=== PATIENT | female | born 1940 | race Caucasian/White ===

== ENCOUNTER → 2021-07-06 | Outpatient (CLI) | payer MEDICARE ==
--- NOTE | 2021-07-07 14:38 | MM ---
Reason for exam: screening (asymptomatic). Last mammogram was performed 1 year and 6 months ago. History: Patient is postmenopausal. Excisional biopsy of the right breast. Took hormonal contraceptives for 10 years. Physical Findings: A clinical breast exam by your physician is recommended on an annual basis and results should be correlated with mammographic findings. MG 3D Screening Mammo W/Cad Bilateral CC and MLO view(s) were taken. Prior study comparison: December 23, 2019, mammogram, performed at [facility]. August 22, 2018, mammogram, performed at [facility]. August 06, 2017, mammogram, performed at [facility]. March 20, 2016, mammogram, performed at [facility]. The breast tissue is extremely dense which could obscure a lesion on mammography. Focal asymmetry right upper MLO view. No significant changes when compared with prior studies. ASSESSMENT: Benign, BI-RAD 2 RECOMMENDATION: Routine screening mammogram of both breasts in 1 year.
== END | disposition home or self-care (01) ==
LOC: RADMAMWWP 09:06
PROVIDERS: ATTEND Internal Medicine Geriatric Medicine
DX: Z12.31 Encounter for screening mammogram for malignant neoplasm of breast (principal); Z78.0 Asymptomatic menopausal state
CPT/HCPCS: 77063; 77067

== ENCOUNTER → 2021-12-06 | Outpatient (CLI) | payer MEDICARE ==
--- NOTE | 2021-12-06 19:24 | BD ---
EXAMINATION TYPE: Axial Bone Density DATE OF EXAM: 12/06/2021 COMPARISON: 10/21/2015 CLINICAL HISTORY: 81 years year old Female. ICD-10 CODE: M81.0 AGE-RELATED OSTEOPOROSIS W/O CURRENT PATHOLO Height: 64 IN Weight: 120 LBS FRAX RISK QUESTIONS: History of Fracture in Adulthood: RT ANKLE FX AGE 51; RT HIP AGE 76 Secondary Osteoporosis: 3. Menopause before 45: PARTIAL HYST AGE 51 RISK FACTORS HISTORY OF: Hip Fracture (Right): YES AGE 76 Surgery to Hip(right): YES AGE 76 Active: YES Postmenopausal woman: PARTIAL HYST AGE 51 Take estrogen and/or progesterone medications: NOT NOW How lon YEARS Lost more than 2 inches in height since high school: 3" YES MEDICATIONS: Additional Medications: CALCIUM, VIT D, BLOOD PRESSURE MEDS, CHOLESTEROL MEDS, FISH OIL, EXAM MEASUREMENTS: Bone mineral densitometry was performed using the dooub System. Bone mineral density as measured about the Lumbar spine is: ----- L1-L4(G/cm2): 0.948 T Score Values are as follows: ----- L1: -2.4 ----- L2: -2.6 ----- L3: -1.8 ----- L4: -1.3 ----- L1-L4: -1.9 Bone mineral density has: Increased 5.4% since study of: 10/21/2015 Bone mineral density about the L hip (g/cm2): 0.668 T Score values are as follows: -----L Neck: -2.7 -----L Total: -3.3 Bone mineral density has: Decreased -5.6% since study of: 10/21/2015 FRAX%s: The graph provided illustrates a 25.7 chance for a major osteoporotic fx and a 9.4 chance for the hips probability for fx in 10 years time. IMPRESSION: Osteoporosis (T Score less than -2.5). There is increased fracture risk and therapy is usually indicated based on age. Re-Screen 1-2 years. NOTE: T-SCORE=SD OF THE YOUNG ADULT MEAN.
== END | disposition home or self-care (01) ==
LOC: RADBDWWP 13:17
PROVIDERS: ATTEND Internal Medicine Geriatric Medicine
DX: M81.0 Age-related osteoporosis without current pathological fracture (principal)
CPT/HCPCS: 77080

== ENCOUNTER → 2022-08-03 | Outpatient (CLI) | payer MEDICARE ==
--- NOTE | 2022-08-06 19:24 | MM ---
Reason for Exam: Screening (asymptomatic). Last screening mammogram was performed 12 month(s) ago. Patient History: Menarche at age 17. First Full-Term at age 25. Hysterectomy at age 56. Postmenopausal. Patient used Hormonal Contraceptives for 10 years. Excisional Biopsy on the Right side. Risk Values: Cnidi 5 year model risk: 1.6%. NCI Lifetime model risk: 2.2%. Prior Study Comparison: 08/22/2018 Screening Mammogram, [facility]. 12/23/2019 Screening Mammogram, [facility]. 07/06/2021 Bilateral Screening Mammogram, [facility]. Tissue Density: The breast tissue is extremely dense which could obscure a lesion on mammography. Findings: Analyzed By CAD. There is no suspicious group of microcalcifications or new suspicious mass in either breast. Overall Assessment: Benign, BI-RAD 2 Management: Screening Mammogram of both breasts in 1 year. 1. Given the patient's breast density, consideration can be given to supplementary screening with breast ultrasound. 2. Patient should continue monthly self breast exams. A clinical breast exam by your physician is recommended on an annual basis. 3. This exam should not preclude additional follow-up of suspicious palpable abnormalities. Electronically signed and approved by: Pradip Cox M.D. Radiologist
== END | disposition home or self-care (01) ==
LOC: RADMAMWWP 13:33
PROVIDERS: ATTEND Internal Medicine Geriatric Medicine
DX: Z12.31 Encounter for screening mammogram for malignant neoplasm of breast (principal); Z78.0 Asymptomatic menopausal state
CPT/HCPCS: 77063; 77067

== ENCOUNTER → 2023-09-13 | Outpatient (CLI) | payer MEDICARE ==
--- NOTE | 2023-09-15 20:41 | XR ---
EXAMINATION TYPE: XR lumbar spine 3V DATE OF EXAM: 09/13/2023 Comparison: None Clinical History: 83-year-old female M54.9 DORSALGIA, UNSPECIFIED Findings: Slight dextroconvex curvature of the lumbar spine. 5 lumbar type vertebral bodies. Osteopenia. Hypert rophic facet arthropathy throughout, greatest in the mid and lower lumbar spine. There is degenerativ e grade 1 retrolisthesis L2-L3 and grade 1 anterolisthesis L4-L5. Remaining alignment is maintained. Vertebral body heights are preserved. Impression: Slight dextroconvex curvature. Hypertrophic facet arthropathy throughout with a degenerative grade 1 spondylolisthesis at L2-L3 and L4-L5. No vertebral compression collapse.
--- NOTE | 2023-09-16 10:37 | MM ---
Reason for Exam: Screening (asymptomatic). Last mammogram was performed 1 year(s) and 2 month(s) ago. Patient History: Menarche at age 17. First Full-Term at age 25. Hysterectomy at age 56. Postmenopausal. Patient used Hormonal Contraceptives for 10 years. Excisional Biopsy on the Right side. Risk Values: Cindi 5 year model risk: 1.5%. NCI Lifetime model risk: 2.0%. Prior Study Comparison: 12/23/2019 Screening Mammogram, [facility]. 07/06/2021 Bilateral Screening Mammogram, [facility]. 08/03/2022 Bilateral MG 3D screening mammo w/cad, [facility]. Tissue Density: The breasts are heterogeneously dense, which may obscure small masses. Findings: Analyzed By CAD. Right breast: There is no suspicious group of microcalcifications or new suspicious mass. Benign-appearing calcifications right breast. Left breast: There is no suspicious group of microcalcifications or new suspicious mass. Benign-appearing calcifications left breast. Overall Assessment: Benign, BI-RAD 2 Management: Screening Mammogram of both breasts in [address] [facility] will attempt to contact patient to return for supplemental views and ultrasound if indicated. Patient should continue monthly self-breast exams. A clinical breast exam by your physician is recommended on an annual basis. This exam should not preclude additional follow-up of suspicious palpable abnormalities. Note on Cindi scores and lifetime risk: 1. A Cindi score greater than 3% is considered moderate risk. If this is the case, consider specialist referral to assess eligibility for a risk reducing agent. 2. If overall lifetime risk for the development of breast cancer is 20% or higher, the patient may qualify for future screening with alternating mammogram and breast MRI. Electronically signed and approved by: Oneil Andrade DO
== END | disposition home or self-care (01) ==
LOC: RADMAMWWP 11:28
PROVIDERS: ATTEND Internal Medicine Geriatric Medicine
DX: Z12.31 Encounter for screening mammogram for malignant neoplasm of breast (principal); M43.16 Spondylolisthesis, lumbar region; M51.36 Other intervertebral disc degeneration, lumbar region; Z78.0 Asymptomatic menopausal state
CPT/HCPCS: 72100; 77063; 77067

== ENCOUNTER → 2023-11-28 | Outpatient (CLI) | payer MEDICARE ==
--- NOTE | 2023-11-28 17:21 | CA ---
Transthoracic Echo Report Name: Daphne Chisholm Age: 83 Gender: F : 1940 Exam Date: 11/28/2023 15:31 Exam Location: [place] [facility] Ht (in): 66 Wt (lb): 110 Ordering Physician: Fran Mercado MD Attending/Referring Phys: Marie Valencia [facility] Recreation Assistant Marge Paige RDCS Procedure CPT: Indications: R01.1 cardiac murmur unspec. Cardiac Hx: Technical Quality: Good Contrast 1: Total Dose (mL): Contrast 2: Total Dose (mL): MEASUREMENTS (Male / Female) Normal Values 2D ECHO LV Diastolic Diameter PLAX 4.0 cm 4.2 - 5.9 / 3.9 - 5.3 cm LV Systolic Diameter PLAX 2.4 cm IVS Diastolic Thickness 0.7 cm 0.6 - 1.0 / 0.6 - 0.9 cm LVPW Diastolic Thickness 0.8 cm 0.6 - 1.0 / 0.6 - 0.9 cm LV Relative Wall Thickness 0.4 RV Internal Dim ED PLAX 2.2 cm LA Systolic Diameter LX 3.3 cm 3.0 - 4.0 / 2.7 - 3.8 cm LV Diastolic Volume MOD BP 67.2 cm??? 67 - 155 / 56 - 104 cm??? LV Systolic Volume MOD BP 18.3 cm??? 22 - 58 / 19 - 49 cm??? LV Ejection Fraction MOD BP 72.7 % >= 55 % LV Diastolic Volume MOD 4C 74.6 cm??? LV Systolic Volume MOD 4C 17.5 cm??? LV Ejection Fraction MOD 4C 76.6 % LV Diastolic Length 4C 7.4 cm LV Systolic Length 4C 6.0 cm LV Diastolic Volume MOD 2C 60.7 cm??? LV Systolic Volume MOD 2C 18.2 cm??? LV Ejection Fraction MOD 2C 70.0 % LV Diastolic Length 2C 7.5 cm LV Systolic Length 2C 5.6 cm M-MODE Aortic Root Diameter MM 2.6 cm LA Systolic Diameter MM 3.5 cm LA Ao Ratio MM 1.3 AV Cusp Separation MM 1.5 cm DOPPLER Mitral E Point Velocity 81.0 cm/s Mitral A Point Velocity 83.1 cm/s Mitral E to A Ratio 1.0 MV Deceleration Time 256.3 ms MV E' Velocity 6.5 cm/s Mitral E to MV E' Ratio 12.4 TR Peak Velocity 254.7 cm/s TR Peak Gradient 25.9 mmHg Right Ventricular Systolic Press 31.5 mmHg FINDINGS Left Ventricle Left ventricular ejection fraction is estimated at 55-60%. Left ventricular cavity size normal. No obvious regional wall motion abnormalities. Left ventricular wall thickness normal. Right Ventricle Normal right ventricular size and function. Right ventricular systolic pressure within normal limits. Right Atrium Normal right atrial size. Left Atrium Normal left atrial size. Mitral Valve Structurally normal mitral valve. [id number]-[id number] mitral regurgitation. No mitral stenosis. Aortic Valve Trileaflet aortic valve. No aortic valve stenosis or regurgitation. Focal thickening of the aortic valve cusps. Tricuspid Valve Structurally normal tricuspid valve. [id number] tricuspid regurgitation. No tricuspid stenosis. Pulmonic Valve Structurally normal pulmonic valve. Trace pulmonic regurgitation. Pericardium No pericardial or pleural effusion. Aorta Normal size aortic root and proximal ascending aorta. CONCLUSIONS Normal LV function Mild to moderate mitral regurgitation Mild to moderate tricuspid regurgitation Previewed by: Dr. Yvan Arnold MD (Electronically Signed) Final Date: 28 November 2023 17:20
== END | disposition home or self-care (01) ==
LOC: RADECHMAIN 15:16
PROVIDERS: ATTEND Internal Medicine Geriatric Medicine
DX: I08.1 Rheumatic disorders of both mitral and tricuspid valves (principal); R01.1 Cardiac murmur, unspecified
CPT/HCPCS: 93306

== ENCOUNTER → 2023-12-04 | Outpatient (CLI) | payer MEDICARE ==
--- NOTE | 2023-12-04 08:49 | US ---
EXAMINATION TYPE: US renal doppler DATE OF EXAM: 12/04/2023 COMPARISON: NONE CLINICAL INDICATION: Female, 83 years old with history of I10 Hypertension; HTN MEASUREMENTS: RENAL SIZE: Right Kidney: 9.4 x 3.9 x 3.6 cm Left Kidney: 11.1 x 4.4 x 3.6 cm Right Kidney: No hydronephrosis or lesions seen Left Kidney: No hydronephrosis or lesions seen Abd Aorta: No AAA visualized RESISTANCE INDEX Right: .79 Left: .77 RA/AO RATIO (< 3.5 ) Right: 1.3 Left: 1.3 RENAL ARTERY VELOCITY ( < 180 cm/s) Right: 114 Left: 112 Collar Stay Fuser Tender Notes: IMPRESSION: 1. No evidence for renal artery stenosis. 2. No evidence for obstructive uropathy.
== END | disposition home or self-care (01) ==
LOC: RADUSWWP 07:12
PROVIDERS: ATTEND Internal Medicine Interventional Cardiology
DX: I10 Essential (primary) hypertension (principal)
CPT/HCPCS: 76775

== ENCOUNTER → 2024-06-01 | Outpatient (CLI) | payer MEDICARE ==
--- NOTE | 2024-06-01 11:13 | XR ---
EXAMINATION TYPE: XR Hip Bilateral Complete DATE OF EXAM: 06/01/2024 COMPARISON: NONE CLINICAL INDICATION: Female, 84 years old with history of M25.551 R hip pain; TECHNIQUE: 2 views each side FINDINGS: Right: There are changes of right hip hemiarthroplasty. Femoral stem component appears well seated. T here is some axial joint space narrowing at the prosthetic right hip. There is a focus of heterotopic ossification along the superior aspect of the hip measuring 5.6 x 2.1 cm, nearly bridging. No acute fracture, subluxation, or dislocation. Left: Osteopenia. Mild degenerative change at the left hip weight marginal spurring. No acute fractur e, subluxation, dislocation. IMPRESSION: 1. Right: Status post right hip hemiarthroplasty. The femoral component appears well seated. There ma y be some [id number] degenerative change of the [place] acetabular articular cartilage. In addit ion, there is a focus of nearly bridging heterotopic ossification measuring 5.6 x 2.1 cm along the chandler perior aspect of the hip. 2. Left: Mild left hip OA. Osteopenia. No acute osseous abnormality seen. [facility], , 06/01/2024 11:10 AM
== END | disposition home or self-care (01) ==
LOC: RADXRMAIN 10:15
PROVIDERS: ATTEND Internal Medicine Geriatric Medicine
DX: M16.12 Unilateral primary osteoarthritis, left hip (principal); Z96.641 Presence of right artificial hip joint; M85.89 Other specified disorders of bone density and structure, multiple sites
CPT/HCPCS: 73521

== ENCOUNTER 2024-09-11 12:32 | Observation (INO) | payer MEDICARE ==
--- NOTE | 2024-09-11 14:32 | ED ---
Back Pain HPI - General Chief Complaint: Back Pain/Injury Stated Complaint: Back pain Time Seen by Provider: 09/11/24 14:18 Source: patient, RN notes reviewed Mode of arrival: ambulatory Limitations: no limitations - History of Present Illness Initial Comments: This is an 84-year-old female who presents to the emergency department for low back pain. Patient has a history of ongoing back problems and for the last couple of days her right sided sciatica has been flaring up on her. Believes that this was triggered by bending over to pick something up that was heavy. She has tried taking oral hydrocodone and tramadol, but cannot tolerate it as it upsets her stomach. It is also not effective for her pain. She had an MRI back in May and they had advised epidural injections or surgery. She was referred for an epidural injection, but states that it is not scheduled for another several days and she cannot wait due to the pain. Her states that she is up all night crying and not sleeping. Pain goes from the right lower back and radiates down her right leg. Denies any loss of bowel/bladder control or saddle anesthesia. MD Complaint: back pain - Related Data Home Medications Medication Instructions Recorded Confirmed Aspirin EC [Ecotrin Low Dose] 81 mg PO DAILY 08/31/22 09/11/24 Ezetimibe [Zetia] 10 mg PO DAILY 08/31/22 09/11/24 L.acidoph,Paracasei, B.lactis 1 cap PO W/SUPPER 08/31/22 09/11/24 [Probiotic] Multivit with Calcium,Iron,Min 1 tab PO DAILY 08/31/22 09/11/24 [Women's Multivitamin] Rosuvastatin [Crestor] 10 mg PO HS 08/31/22 09/11/24 lisinopriL 40 mg PO DAILY 08/31/22 09/11/24 Cetirizine HCl [Zyrtec] 10 mg PO W/SUPPER 09/11/24 09/11/24 Fluticasone Nasal [place] [Flonase 1 spray EA NOSTRIL DAILY 09/11/24 09/11/24 Nasal [place]] LORazepam [Ativan] 1 mg PO TID PRN 09/11/24 09/11/24 Spironolactone [Aldactone] 25 mg PO DAILY 09/11/24 09/11/24 atenoloL [Tenormin] 50 mg PO BID 09/11/24 09/11/24 hydrALAZINE HCL [Apresoline] 100 mg PO TID 09/11/24 09/11/24 Previous Rx's Medication Instructions Recorded Fluticasone Propion/Salmeterol 2 puff INHALATION RT-BID #1 each 09/03/22 [Advair Hfa 115-21 Mcg Inhaler] Allergies Allergy/AdvReac Type Severity Reaction Status Date / Time morphine Allergy Unknown Verified 09/11/24 15:38 Sulfa (Sulfonamide Allergy Unknown Verified 09/11/24 15:38 Antibiotics) Review of Systems ROS Statement: Those systems with pertinent positive or pertinent negative responses have been documented in the HPI. ROS Other: All systems not noted in ROS Statement are negative. Past Medical History Past Medical History: Hypertension Additional Past Medical History / Comment(s): uti, chronic back pain History of Any Multi-Drug Resistant Organisms: None Reported Past Surgical History: Hernia Repair, Hysterectomy, Joint Replacement, Orthopedic Surgery Past Psychological History: No Psychological Hx Reported Smoking Status: Never smoker Past Alcohol Use History: None Reported Past Drug Use History: None Reported General Exam Limitations: no limitations General appearance: alert, in distress Head exam: Present: atraumatic, normocephalic, normal inspection Respiratory exam: Present: normal lung sounds bilaterally. Absent: respiratory distress, wheezes, rales, rhonchi, stridor Cardiovascular Exam: Present: regular rate, normal rhythm Neurological exam: Present: alert, oriented X3, CN II-XII intact Psychiatric exam: Present: normal affect, normal mood Skin exam: Present: warm, dry, intact, normal color. Absent: rash Course Vital Signs 09/11/24 09/11/24 09/11/24 12:54 16:56 18:43 Temperature 98 F Pulse Rate 68 80 Respiratory 16 16 Rate Blood Pressure 143/71 127/61 O2 Sat by Pulse 97 93 L Oximetry Medical Decision Making - Medical Decision Making This is an 84-year-old female who presents to the emergency department for back pain. Was pt. sent in by a medical professional or institution? @ -No Did you speak to anyone other than the patient for history? @ -Her provided information about her being unable to sleep due to her pain Did you review nursing and triage notes? @ -Yes, and I agree, it is accurate with regards to the patient's symptoms. Were old charts reviewed? @ -No Differential Diagnosis? @ -Differential Back Pain: Strain, zoster, cauda equina syndrome, epidural abscess, vertebral osteomyelitis, discitis, fracture, subluxation, disc herniation, DJD, spinal stenosis, dissection, AAA, pancreatitis, peptic ulcer disease, pyelonephritis, kidney stone, this is not meant to be an all-inclusive list. EKG interpreted by me (3pts min.)? @ -Not obtained X-rays interpreted by me (1pt min.)? @ -Not obtained CT interpreted by me (1pt min.)? @ -CT scan of the lumbar spine obtained. My interpretation identifies no acute fractures. U/S interpreted by me (1pt. min.)? @ -Not obtained What testing was considered but not performed? (CT, X-rays, U/S, labs)? Why? @ -None What meds were considered but not given? Why? @ -None Did you discuss the management of the patient with other professionals? @ -Yes, Dr. Sommers, who accepts the patient for admission Did you reconcile home meds? @ -Yes Was smoking cessation discussed for >3mins.? @ -No Was critical care preformed (if so, how long)? @ -No Were there social determinants of health that impacted care today? How? (Homelessness, low income, unemployed, alcoholism, drug addiction, transportation, low edu. Level, literacy, decrease access to med. care, half-way, rehab)? @ -No Was there de-escalation of care discussed even if they declined? (Discuss DNR or withdrawal of care, Hospice)? @ -No What co-morbidities impacted this encounter? (DM, HTN, Smoking, COPD, CAD, Cancer, CVA, Hep., AIDS, mental health diagnosis, sleep apnea, morbid obesity)? @ -HTN, chronic back pain Was patient admitted / discharged? @ -Admitted. Lab work unremarkable. Urinalysis negative for signs of infection. CT scan of the lumbar spine demonstrates multiple broad-based disc bulges with foraminal stenosis. Patient was given multiple pain medications with little to no relief. She has already tried [place] and tramadol at home, which have also not been effective and upset her stomach. Patient very tearful throughout the emergency department visit due to her pain and situation. States that she is already established with Dr. Wei, orthopedics. Patient admitted to medicine for intractable back pain related to broad-based disc bulges and foraminal stenosis. Consult placed for Dr. Wei. Case discussed with ED atte andres Londono. Undiagnosed new problem with uncertain prognosis? @ -None Drug Therapy requiring intensive monitoring for toxicity (Heparin, Nitro, Insulin, Cardizem)? @ -None Were any procedures done? @ -None Diagnosis/symptom? @ -Intractable back pain, broad-based disc bulges, foraminal stenosis Acute, or Chronic, or Acute on Chronic? @ -Acute Uncomplicated (without systemic symptoms) or Complicated (systemic symptoms)? @ -Complicated Side effects of treatment? @ -None Exacerbation, Progression, or Severe Exacerbation] @ -Not applicable Poses a threat to life or bodily function? @ -Yes, patient unable to function due to her pain - Lab Data Result diagrams: 09/11/24 14:36 09/11/24 14:36 Lab Results 09/11/24 09/11/24 09/11/24 Range/Units 14:36 14:36 14:36 WBC 9.83 (4.50-10.00) 10*3/uL RBC 4.44 (4.10-5.20) 10*6/uL Hgb 13.5 (12.0-15.0) g/dL Hct 41.6 (37.2-46.3) % MCV 93.7 (80.0-97.0) fL MCH 30.4 (27.0-32.0) pg MCHC 32.5 (32.0-37.0) g/dL Plt Count 230 (140-440) 10*3/uL MPV 10.1 (9.5-12.2) fL Immature Gran % (Auto) 0.4 % Neutrophils % 66.9 % Lymphocytes % 22.5 % Monocytes % 9.2 % Eosinophils % 0.7 % Basophils % 0.3 % Immature Gran # 0.04 (0.00-0.04) 10*3/uL Neutrophils # 6.58 (1.80-7.70) 10*3/uL Lymphocytes # 2.21 (0.90-5.00) 10*3/uL Monocytes # 0.90 (0.20-1.00) 10*3/uL Eosinophils # 0.07 (0.04-0.35) 10*3/uL Basophils # 0.03 (0.00-0.10) 10*3/uL PT 10.1 (10.0-12.5) sec INR 0.9 (<1.2) APTT 20.5 L (22.0-30.0) sec Sodium 137 (137-145) mmol/L Potassium 5.0 (3.5-5.1) mmol/L Chloride 102 (98-107) mmol/L Carbon Dioxide 26 (22-30) mmol/L Anion Gap 9 mmol/L BUN 38 H (7-17) mg/dL Creatinine 0.88 (0.52-1.04) mg/dL Est GFR (CKD-EPI)AfAm 71 (>60 ml/min/1.73 sqM) Est GFR (CKD-EPI)NonAf 61 (>60 ml/min/1.73 sqM) Glucose 109 H (74-99) mg/dL Calcium 10.7 H (8.4-10.2) mg/dL Magnesium 1.9 (1.6-2.3) mg/dL Total Bilirubin 0.6 (0.2-1.3) mg/dL AST 31 (14-36) U/L ALT 23 (4-34) U/L Alkaline Phosphatase 45 (38-126) U/L Total Protein 7.1 (6.3-8.2) g/dL Albumin 4.5 (3.5-5.0) g/dL - Radiology Data Radiology results: report reviewed, image reviewed Disposition Clinical Impression: Intractable low back pain, Bulging discs, Foraminal stenosis of lumbar region, Lumbar radiculopathy, right Disposition: ADMITTED IP TO THIS HOSP
[2024-09-11 14:39] LABS: Basophils # (A) 0.03 10*3/uL (0.00-0.10); Basophils % (A) 0.3 %; Eosinophils # (A) 0.07 10*3/uL (0.04-0.35); Eosinophils % (A) 0.7 %; HCT 41.6 % (37.2-46.3); HGB 13.5 g/dL (12.0-15.0); Lymphocytes # (A) 2.21 10*3/uL (0.90-5.00); Lymphocytes % (A) 22.5 %; MCH 30.4 pg (27.0-32.0); MCHC 32.5 g/dL (32.0-37.0); MCV 93.7 fL (80.0-97.0); Mean Platelet Volume 10.1 fL (9.5-12.2); Monocytes % (A) 9.2 %; Neutrophils # (A) 6.58 10*3/uL (1.80-7.70); Neutrophils % (A) 66.9 %; Platelet Count 230 10*3/uL (140-440); RBC 4.44 10*6/uL (4.10-5.20); RDW 11.9 % (11.5-14.5); WBC 9.83 10*3/uL (4.50-10.00)
[2024-09-11] MEDS: KETOROLAC 15 MG/ML 1 ML VIAL IVP STA (14:52)
[2024-09-11] MEDS: SODIUM CHLORIDE 0.9% 500 ML 500 ML IV ONE (14:52)
[2024-09-11] MEDS: ONDANSETRON 4 MG/2 ML VIAL IVP STA (14:52)
[2024-09-11] MEDS: HYDROmorphone 0.5 MG/0.5 ML SYRINGE IVP STA (14:55)
[2024-09-11] MEDS: DEXAMETHASONE SOD PHOSPHATE 10 MG/ML 1 ML VIAL IVP STA (14:55)
[2024-09-11 14:57] LABS: INR 0.9 (<1.2); Prothrombin Time 10.1 sec (10.0-12.5)
[2024-09-11 15:02] LABS: Partial Thromboplastin Time 20.5 sec (22.0-30.0)
[2024-09-11 15:06] LABS: ALT 23 U/L (4-34); AST 31 U/L (14-36); African American GFR (CKD) 71 (>60 ml/min/1.73 sqM); Albumin 4.5 g/dL (3.5-5.0); Alkaline Phosphatase 45 U/L (38-126); Anion Gap 9 mmol/L; Blood Urea Nitrogen 38 mg/dL (7-17); Calcium 10.7 mg/dL (8.4-10.2); Carbon Dioxide 26 mmol/L (22-30); Chloride 102 mmol/L (98-107); Glucose 109 mg/dL (74-99); Magnesium 1.9 mg/dL (1.6-2.3); Non-African American GFR(CKD) 61 (>60 ml/min/1.73 sqM); Sodium 137 mmol/L (137-145); Total Bilirubin 0.6 mg/dL (0.2-1.3); Total Protein 7.1 g/dL (6.3-8.2)
--- NOTE | 2024-09-11 15:28 | CT ---
EXAMINATION TYPE: CT lumbar spine wo con DATE OF EXAM: 09/11/2024 3:19 PM COMPARISON: None. CLINICAL INDICATION: Female, 84 years old with history of Low back pain, Lower back pain, radiates to wards feet. States that she picked up something too heavy, pain TECHNIQUE: CT of the lumbar spine is performed on a spiral scan at 3 mm thick sections. Reconstructed images are performed in the coronal and sagittal planes. Contrast used: mL of , (none if empty) Oral contrast used: (none if empty) CT DLP: 430 mGycm, Automated exposure control for dose reduction was used. FINDINGS: T12-L1: No focal disc herniation or significant disc bulge is evident. No spinal canal stenosis or neural foraminal stenosis is present. L1-L2: Mild disc bulge and anterior thecal sac contact. Facet hypertrophy has posterior lateral theca l sac compression. AP spinal canal stenosis is not present. Neural foramen are patent L2-L3: Broad-based disc bulge has mild anterior thecal sac compression. Facet hypertrophy and ligamen vu flavum laxity of posterior lateral thecal sac impression. Moderate left and mild right foraminal narrowing is present. L3-L4: Disc space narrowing is present. Residual disc bulges anterior thecal sac flattening. Facet hy pertrophy and ligamentum flavum laxity is present. No AP spinal canal stenosis is present. There is m oderate to severe left and moderate right foraminal stenosis. L4-L5: Minimal grade 1 spondylolisthesis is present. Disc uncovering is moderate anterior thecal sac compression. Facet hypertrophy and ligamentum flavum laxity is present. Spinal canal stenosis present . Moderate bilateral foraminal narrowing is present greater on the left. L5-S1: No focal disc herniation or significant disc bulge is evident. No spinal canal stenosis or n eural foraminal stenosis is present. IMPRESSION: 1. Broad-based disc bulge and facet hypertrophy and ligamentum flavum laxity is contributing to spina l canal narrowing at the L4-5 level. Bilateral moderate foraminal stenosis is present. 2. Moderate foraminal narrowing L2-3 and moderate to severe foraminal narrowing L3-4 discussed above. No severe foraminal stenosis appears to be the right L3-4 level. Correlate for radicular symptoms. 3. Minimal grade 1 spondylolisthesis of L4 anterior to L5. [facility], , 09/11/2024 3:26 PM
[2024-09-11] MEDS ORDERED: NALOXONE 0.4 MG/ML 1 ML VIAL IV PRN (15:54)
[2024-09-11] MEDS ORDERED: HYDROmorphone 1 MG/ML 1 ML SYRINGE IVP PRN (15:54)
[2024-09-11] MEDS ORDERED: ONDANSETRON 4 MG/2 ML VIAL IVP PRN (15:54)
[2024-09-11] MEDS ORDERED: ACETAMINOPHEN TAB 325 MG TAB PO PRN (15:54)
[2024-09-11] MEDS: LIDOCAINE 4% PATCH TOPICAL ONE (17:00)
[2024-09-11] MEDS: hydrALAZINE HCL 50 MG TAB PO SCH (17:00)
[2024-09-11] MEDS: LACTOBACILLUS ACIDOPHILUS/PECT 1 EACH CAPSULE PO SCH (18:41)
[2024-09-11] MEDS: LORATADINE 10 MG TAB PO SCH (18:44)
[2024-09-11 19:11] LABS: Appearance,Urine Clear (Clear); Bacteria,Urine Few /hpf; Bilirubin,Urine Negative (Negative); Blood,Urine Negative (Negative); Color,Urine Yellow; Glucose,Urine (UA) Negative (Negative); Hyaline Casts,Urine 8 /lpf (0-2); Ketones,Urine Negative (Negative); Leukocyte Esterase,Urine Negative (Negative); Mucus,Urine Occasional /hpf; Nitrite,Urine Negative (Negative); Protein,Urine 1+ (Negative); RBC,Urine 7 /hpf (0-5); Specific Gravity,Urine 1.017 (1.001-1.035); Squamous Epithelial Cell,Urine 1 /hpf (0-4); Urobilinogen,Urine <2.0 mg/dL (<2.0); WBC,Urine 3 /hpf (0-5)
[2024-09-11] MEDS: SYMBICORT 160-4.5 MCG INHALER INHALATION SCH (19:51)
[2024-09-11] MEDS: ATORVASTATIN 20 MG TAB PO SCH (21:08)
[2024-09-11] MEDS: atenoloL 50 MG TAB PO SCH (21:08)
[2024-09-11] MEDS: HYDROmorphone 0.5 MG/0.5 ML SYRINGE IVP PRN (21:09)
[2024-09-11] MEDS: LORazepam 1 MG TAB PO PRN (21:47)
[2024-09-12] MEDS: FLUTICASONE NASAL 50MCG/SPRAY 16GM BTL EA NOSTRIL SCH (08:39)
[2024-09-12] MEDS: EZETIMIBE 10 MG TAB PO SCH (08:39)
[2024-09-12] MEDS: MULTIVITAMINS, THERA 1 EACH TAB PO SCH (08:39)
[2024-09-12] MEDS: lisinopriL 20 MG TAB PO SCH (08:40)
[2024-09-12] MEDS: PANTOPRAZOLE 40 MG/10 ML VIAL IV SCH (08:40)
[2024-09-12] MEDS: ASPIRIN 81 MG PO SCH (08:40)
[2024-09-12] MEDS: SPIRONOLACTONE 25 MG TAB PO SCH (08:41)
--- NOTE | 2024-09-12 11:07 | P.CNOR ---
History of Present Illness - [facility] Consult date: 09/12/24 Consult reason: low back pain, other (Low back pain with right lower extremity pain and radiculopathy) History of present illness: Patient is a pleasant 84-year-old female who is known to our service. She has had a history of low back pain and right lower extremity pain. The pain primarily extends down her right groin and thigh down her leg to her foot and toes. She denies any specific weakness. She denies any specific trauma. She also has low back pain across her lower back particular to the right. She denies any specific injury. She denies any changes bowel bladder function. When she stands up she feels like her leg will give way. She denies any headache neck pain chest pain nausea or vomiting. Denies any weakness of her upper extremities. The pains been present worsening over the past couple of months particularly over the past 6 weeks. She has been through medication and physical therapy as an outpatient. But she has not been having any relief. She was scheduled for a epidural steroid injection coming up at the end of next week but the pain was unbearable for her and she presented to the emergency room. Review of Systems As stated per HPI. Denies any chest pain shortness of breath. Denies any nausea or vomiting. The pain is primarily in her right lower extremity. She has no new weakness. No new changes to bowel bladder function. She was scheduled for epidural steroid injection as outpatient at the end of next week but the pain was unbearable for her and she had to present to the hospital. She has long history of problems with medications and is unable to take pain medication she says including Tylenol Rochelle tramadol. She feels she did have some relief with the Valium last night. Past Medical History Past Medical History: Hypertension Additional Past Medical History / Comment(s): uti, chronic back pain History of Any Multi-Drug Resistant Organisms: None Reported Past Surgical History: Hernia Repair, Hysterectomy, Joint Replacement, Orthopedic Surgery Additional Past Surgical History / Comment(s): partical right hip, hardware in rt ankle, right groin hernia 2023 Past Psychological History: No Psychological Hx Reported Smoking Status: Never smoker Past Alcohol Use History: None Reported Past Drug Use History: None Reported Medications and Allergies Home Medications Medication Instructions Recorded Confirmed Type Aspirin EC [Ecotrin Low Dose] 81 mg PO DAILY 08/31/22 09/11/24 History Ezetimibe [Zetia] 10 mg PO DAILY 08/31/22 09/11/24 History L.acidoph,Paracasei, B.lactis 1 cap PO W/SUPPER 08/31/22 09/11/24 History [Probiotic] Multivit with Calcium,Iron,Min 1 tab PO DAILY 08/31/22 09/11/24 History [Women's Multivitamin] Rosuvastatin [Crestor] 10 mg PO HS 08/31/22 09/11/24 History lisinopriL 40 mg PO DAILY 08/31/22 09/11/24 History Fluticasone Propion/Salmeterol 2 puff INHALATION RT-BID #1 each 09/03/22 Rx [Advair Hfa 115-21 Mcg Inhaler] Cetirizine HCl [Zyrtec] 10 mg PO W/SUPPER 09/11/24 09/11/24 History Fluticasone Nasal [place] [Flonase 1 spray EA NOSTRIL DAILY 09/11/24 09/11/24 History Nasal [place]] LORazepam [Ativan] 1 mg PO TID PRN 09/11/24 09/11/24 History Spironolactone [Aldactone] 25 mg PO DAILY 09/11/24 09/11/24 History atenoloL [Tenormin] 50 mg PO BID 09/11/24 09/11/24 History hydrALAZINE HCL [Apresoline] 100 mg PO TID 09/11/24 09/11/24 History Allergies Allergy/AdvReac Type Severity Reaction Status Date / Time morphine Allergy Unknown Verified 09/11/24 15:38 Sulfa (Sulfonamide Allergy Unknown Verified 09/11/24 15:38 Antibiotics) Physical Examination Osteopathic Statement: *. No significant issues noted on an osteopathic structural exam other than those noted in the History and Physical/Consult. - L Spine: dermatomal strength & reflexes right Strength: hip flexion: 5/5 (Her low back nontender over the midline. There is no skin changes. She has sustained 5 out of 5 strength with hip flexion knee extension dorsiflexion plantarflexion EHL. She has pain when she tries to get up and move around particular at her right lower extremity. Calves and thighs soft nontende) Strength: hip extension: 5/5 (Her chest has good excursion deep inspiration expiration her neck and upper extremities full active and passive range of motion. Left lower extremities full active and passive range of motion with 5 out of 5 strength) Results - Labs Labs: Abnormal Lab Results - Last 24 Hours (Table) 09/11/24 09/11/24 09/11/24 Range/Units 14:36 14:36 18:56 APTT 20.5 L (22.0-30.0) sec BUN 38 H (7-17) mg/dL Glucose 109 H (74-99) mg/dL Calcium 10.7 H (8.4-10.2) mg/dL Urine Protein 1+ H (Negative) Urine RBC 7 H (0-5) /hpf Urine Bacteria Few H (None) /hpf Hyaline Casts 8 H (0-2) /lpf Urine Mucus Occasional H (None) /hpf H & H 09/11/24 Range/Units 14:36 Hgb 13.5 (12.0-15.0) g/dL Hct 41.6 (37.2-46.3) % Coagulation 09/11/24 Range/Units 14:36 INR 0.9 (<1.2) Result Diagrams: 09/11/24 14:36 09/11/24 14:36 - Diagnostic results CT Scan - lumbar: report reviewed, image reviewed (Imaging lumbar spine with CT scan shows multiple degenerative changes with disc protrusion L2-3 L3-4 L4-5. There is evidence of central and bilateral foraminal stenosis most severely at L4-5 but also at L3-4 and L2-3. She has a listhesis L4-5.) Assessment and Plan Assessment: Acute on chronic low back pain Severe spinal stenosis L2-3 L3-4 L4-5 Spondylolisthesis L4-5 Right lower extreme radiculopathy without acute neurologic change Difficulty with multiple medications and inability to take pain medicine Plan: Acute on chronic low back pain Severe spinal stenosis L2-3 L3-4 L4-5 Spondylolisthesis L4-5 Right lower extreme radiculopathy without acute neurologic change Difficulty with multiple medications and inability to take pain medicine The patient has an exacerbation of her degenerative spondylosis. She has evidence of significant stenosis at multiple levels most severe at L4-5. She is not having acute neurologic loss or weakness. It is okay for her to try to mobilize if she is able. I like to see if the patient has any benefit with short course of IV steroid followed by a stronger dose of oral steroid. We will prescribe this for her. The patient is quite intolerant of multiple indications and pain medications. This is making it difficult to control her pain and her symptoms. She had some relief with Valium and we have to be cautious with this but we will prescribe it for her. The patient had been scheduled for a epidural steroid injection next week but her pain became too severe for her to manage. Will have pain management see her here in the hospital and hopefully have an injection with epidural steroid in jection as soon as possible to give her potential relief. Over the intermediate term if the patient is not doing well with interventional pain management over the next several weeks, and she is having worsening and persistent symptoms we have discussed the possibly of surgical intervention which would involve multilevel decompression and fusion. The patient would like to exhaust all conservative management before considering this. Will continue to follow along with you.
[2024-09-12] MEDS: methylPREDNISolone SOD SUCCI 125 MG/2 ML VIAL IV SCH (12:03)
[2024-09-12 12:21] VITALS: BMI 17.2
[2024-09-12] MEDS ORDERED: KETOROLAC 15 MG/ML 1 ML VIAL IVP PRN ×2 (15:49→16:55)
[2024-09-12] MEDS: diazePAM 2 MG TAB PO PRN (15:54)
[2024-09-12] MEDS: KETOROLAC 15 MG/ML 1 ML VIAL IVP SCH (17:05)
[2024-09-12] MEDS: ACETAMINOPHEN IV (For NPO) 1,000 MG in EMPTY BAG 1 BAG IVPB PRN (17:17)
[2024-09-13 07:17] VITALS: RESP 14; TEMP 98.2
[2024-09-13] MEDS: PANTOPRAZOLE 40 MG TABLET PO SCH (08:18)
--- NOTE | 2024-09-13 10:48 | P.HPIM ---
History of Present Illness 84-year-old pleasant female came with the low back pain and right right lower extremity pain which is a radiating pain the pain goes down the right groin and thigh both the toes. Patient had any weakness in the lower extremities patient denied any trauma patient pain has been going on for few weeks much worse last few days patient has follow-up with physical therapy as an outpatient patient has an epidural injection scheduled for next Saturday. As her pain is unbearable she came to the ER. Patient had a lumbar spine CT which showed broad-based disc bulge and facet hypertrophy and ligamentum flavum laxity at the level of L4-5 a nd moderate foraminal stenosis and moderate foraminal narrowing at L2-3 and severe foraminal narrowing at L3-4 and minimal grade 1 spondylolisthesis of L4. REVIEW OF SYSTEMS: All other systems are negative except those mentioned in the HPI PHYSICAL EXAMINATION: GENERAL: The patient is alert and oriented x3, not in any acute distress. Well developed, well nourished. HEENT: Pupils are round and equally reacting to light. EOMI. No scleral icterus. No conjunctival pallor. Normocephalic, atraumatic. No pharyngeal erythema. No thyromegaly. CARDIOVASCULAR: S1 and S2 present. No murmurs, rubs, or gallops. PULMONARY: Chest is clear to auscultation, no wheezing or crackles. ABDOMEN: Soft, nontender, nondistended, normoactive bowel sounds. No palpable organomegaly. MUSCULOSKELETAL: No joint swelling or deformity. EXTREMITIES: No cyanosis, clubbing, or pedal edema. NEUROLOGICAL: Gross neurological examination did not reveal any focal deficits. SKIN: No rashes. Assessment and plan -Acute on chronic low back pain with severe spinal stenosis at L2-3, L3-4 and L4-5. Patient will be started on anti-inflammatory medications including steroids and IV Tylenol and IV Toradol patient was started on opiates from ER which we will try to limit as much as we can - Right lower extremity radiculopathy - Hypertension patient has low blood pressures in the hospital we will cut down the dose of hydralazine to 50 3 times daily from 100 3 times daily rest of the blood pressure medications will be resumed -Hyperlipidemia patient was started on statin DVT prophylaxis: Lovenox Past Medical History Past Medical History: Hypertension Additional Past Medical History / Comment(s): uti, chronic back pain History of Any Multi-Drug Resistant Organisms: None Reported Past Surgical History: Hernia Repair, Hysterectomy, Joint Replacement, Orthopedic Surgery Additional Past Surgical History / Comment(s): partical right hip, hardware in rt ankle, right groin hernia 2023 Past Psychological History: No Psychological Hx Reported Smoking Status: Never smoker Past Alcohol Use History: None Reported Past Drug Use History: None Reported Medications and Allergies Home Medications Medication Instructions Recorded Confirmed Type Aspirin EC [Ecotrin Low Dose] 81 mg PO DAILY 08/31/22 09/11/24 History Ezetimibe [Zetia] 10 mg PO DAILY 08/31/22 09/11/24 History L.acidoph,Paracasei, B.lactis 1 cap PO W/SUPPER 08/31/22 09/11/24 History [Probiotic] Multivit with Calcium,Iron,Min 1 tab PO DAILY 08/31/22 09/11/24 History [Women's Multivitamin] Rosuvastatin [Crestor] 10 mg PO HS 08/31/22 09/11/24 History lisinopriL 40 mg PO DAILY 08/31/22 09/11/24 History Fluticasone Propion/Salmeterol 2 puff INHALATION RT-BID #1 each 09/03/22 09/11/24 Rx [Advair Hfa 115-21 Mcg Inhaler] Cetirizine HCl [Zyrtec] 10 mg PO W/SUPPER 09/11/24 09/11/24 History Fluticasone Nasal [place] [Flonase 1 spray EA NOSTRIL DAILY 09/11/24 09/11/24 History Nasal [place]] LORazepam [Ativan] 1 mg PO TID PRN 09/11/24 09/11/24 History Spironolactone [Aldactone] 25 mg PO DAILY 09/11/24 09/11/24 History atenoloL [Tenormin] 50 mg PO BID 09/11/24 09/11/24 History Celecoxib [CeleBREX] 200 mg PO BID #30 capsule 09/13/24 Rx Famotidine [Pepcid] 20 mg PO BID #60 tablet 09/13/24 Rx hydrALAZINE HCL [Apresoline] 50 mg PO TID #0 09/13/24 09/11/24 Rx predniSONE 10 mg PO DIRECTED #50 tab 09/13/24 Rx Allergies Allergy/AdvReac Type Severity Reaction Status Date / Time morphine Allergy Unknown Verified 09/11/24 15:38 Sulfa (Sulfonamide Allergy Unknown Verified 09/11/24 15:38 Antibiotics) Physical Exam Vitals: Vital Signs Temp Pulse Resp BP Pulse Ox 09/13/24 07:00 98.2 F 73 14 183/78 96 09/13/24 02:00 97.4 F L 79 16 111/57 96 09/12/24 20:10 97.8 F 67 16 115/58 96 09/12/24 13:25 97.4 F L 68 14 136/67 96 Intake and Output 09/12/24 09/13/24 09/13/24 22:59 06:59 14:59 Intake Total 240 Balance 240 Intake: Oral 240 Other: Voiding Method Toilet Toilet # Voids 2 3 Results CBC & Chem 7: 09/11/24 14:36 09/11/24 14:36
--- NOTE | 2024-09-13 10:51 | P.DS ---
Providers Date of admission: 09/11/24 15:40 Attending physician: Marivel Banda Consults: 09/11/24 15:54 Consult Physician Urgent Consulting Provider: Nevaeh Wei Consult Reason/Comments: Intractable back pain Do you want consulting provider notified?: Yes Primary care physician: [facility] Course: 84-year-old pleasant female came with the low back pain and right right lower extremity pain which is a radiating pain the pain goes down the right groin and thigh both the toes. Patient had any weakness in the lower extremities patient denied any trauma patient pain has been going on for few weeks much worse last few days patient has follow-up with physical therapy as an outpatient patient has an epidural injection scheduled for next Saturday. As her pain is unbearable she came to the ER. Patient had a lumbar spine CT which showed broad-based disc bulge and facet hypertrophy and ligamentum flavum laxity at the level of L4-5 and moderate foraminal stenosis and moderate foraminal narrowing at L2-3 and severe foraminal narrowing at L3-4 and minimal grade 1 spondylolisthesis of L4. 09/13/2024 patient's pain is well-controlled on anti-inflammatory medications patient is being discharged on home dose of steroids and Celebrex PHYSICAL EXAMINATION: GENERAL: The patient is alert and oriented x3, not in any acute distress. Well developed, well nourished. HEENT: Pupils are round and equally reacting to light. EOMI. No scleral icterus. No conjunctival pallor. Normocephalic, atraumatic. No pharyngeal erythema. No thyromegaly. CARDIOVASCULAR: S1 and S2 present. No murmurs, rubs, or gallops. PULMONARY: Chest is clear to auscultation, no wheezing or crackles. ABDOMEN: Soft, nontender, nondistended, normoactive bowel sounds. No palpable organomegaly. MUSCULOSKELETAL: No joint swelling or deformity. EXTREMITIES: No cyanosis, clubbing, or pedal edema. NEUROLOGICAL: Gross neurological examination did not reveal any focal deficits. SKIN: No rashes. Assessment and plan -Acute on chronic low back pain with severe spinal stenosis at L2-3, L3-4 and L4-5. Improved with anti-inflammatory occasions will be discharged today. Patient will continue outpatient physical therapy - Right lower extremity radiculopathy - Hypertension patient has low blood pressures in the hospital we will cut down the dose of hydralazine to 50 3 times daily from 100 3 times daily -Hyperlipidemia patient was started on statin Plan - Discharge Summary Discharge Rx Participant: No New Discharge Prescriptions: New Celecoxib [CeleBREX] 200 mg PO BID #30 capsule Famotidine [Pepcid] 20 mg PO BID #60 tablet predniSONE 10 mg PO DIRECTED #50 tab Continue Multivit with Calcium,Iron,Min [Women's Multivitamin] 1 tab PO DAILY Ezetimibe [Zetia] 10 mg PO DAILY Fluticasone Propion/Salmeterol [Advair Hfa 115-21 Mcg Inhaler] 2 puff INHALATION RT-BID #1 each LORazepam [Ativan] 1 mg PO TID PRN PRN Reason: Anxiety Fluticasone Nasal [place] [Flonase Nasal [place]] 1 spray EA NOSTRIL DAILY L.acidoph,Paracasei, B.lactis [Probiotic] 1 cap PO W/SUPPER Aspirin EC [Ecotrin Low Dose] 81 mg PO DAILY Rosuvastatin [Crestor] 10 mg PO HS lisinopriL 40 mg PO DAILY atenoloL [Tenormin] 50 mg PO BID Cetirizine HCl [Zyrtec] 10 mg PO W/SUPPER Spironolactone [Aldactone] 25 mg PO DAILY Changed hydrALAZINE HCL [Apresoline] 50 mg PO TID #0 Discharge Medication List Aspirin EC [Ecotrin Low Dose] 81 mg PO DAILY 08/31/22 [History] Ezetimibe [Zetia] 10 mg PO DAILY 08/31/22 [History] L.acidoph,Paracasei, B.lactis [Probiotic] 1 cap PO W/SUPPER 08/31/22 [History] Multivit with Calcium,Iron,Min [Women's Multivitamin] 1 tab PO DAILY 08/31/22 [History] Rosuvastatin [Crestor] 10 mg PO HS 08/31/22 [History] lisinopriL 40 mg PO DAILY 08/31/22 [History] Fluticasone Propion/Salmeterol [Advair Hfa 115-21 Mcg Inhaler] 2 puff INHALATION RT-BID #1 each 09/03/22 [Rx] Cetirizine HCl [Zyrtec] 10 mg PO W/SUPPER 09/11/24 [History] Fluticasone Nasal [place] [Flonase Nasal [place]] 1 spray EA NOSTRIL DAILY 09/11/24 [History] LORazepam [Ativan] 1 mg PO TID PRN 09/11/24 [History] Spironolactone [Aldactone] 25 mg PO DAILY 09/11/24 [History] atenoloL [Tenormin] 50 mg PO BID 09/11/24 [History] Celecoxib [CeleBREX] 200 mg PO BID #30 capsule 09/13/24 [Rx] Famotidine [Pepcid] 20 mg PO BID #60 tablet 09/13/24 [Rx] hydrALAZINE HCL [Apresoline] 50 mg PO TID #0 09/13/24 [Rx] predniSONE 10 mg PO DIRECTED #50 tab 09/13/24 [Rx] Follow up Appointment(s)/Referral(s): Nevaeh Wei DO [Doctor of Osteopathic Medicine] - 1 Week Fran Mercado MD [Primary Care Provider] - 3 Days Discharge Disposition: HOME SELF-CARE
[2024-09-13 11:58] VITALS: BP 146/68; PULSE 61
== END 2024-09-13 12:30 | disposition home or self-care (01) ==
LOC: EC 12:32 → 4SSUR 15:40 → 6NMEDSUR 19:42
PROVIDERS: ADMIT Hospitalist; ATTEND Hospitalist
DX: M48.061 Spinal stenosis, lumbar region without neurogenic claudication (principal); M51.16 Intervertebral disc disorders with radiculopathy, lumbar region; M47.26 Other spondylosis with radiculopathy, lumbar region; M43.16 Spondylolisthesis, lumbar region; G89.29 Other chronic pain; I10 Essential (primary) hypertension; E78.5 Hyperlipidemia, unspecified; I95.9 Hypotension, unspecified; Z79.82 Long term (current) use of aspirin; Z79.51 Long term (current) use of inhaled steroids; Z79.899 Other long term (current) drug therapy; Z88.2 Allergy status to sulfonamides; Z88.5 Allergy status to narcotic agent
CPT/HCPCS: 96376 ×3; 96375 ×2; 96374; 99284; 36415; 94640 ×3; 80053; 83735; 85025; 85610; 85730; 81001; 72131; G0378 ×4; J1100; J3360; J2405; J0131; J1885; J1171; J2919 ×2; J2470